=== PATIENT | female | born 1985 ===

== ENCOUNTER 2018-02-09 09:20 | Emergency (ER) | payer OTHER ==
[2018-02-09 09:24] VITALS: O2SAT 99; BMI 27.6
--- NOTE | 2018-02-09 10:26 | ED PDOC ---
HPI: General Adult Chief Complaint (Provider): generalized body aches History Per: Patient History/Exam Limitations: no limitations Onset/Duration Of Symptoms: Days (7) Current Symptoms Are (Timing): Constant Pain Scale Rating Of: 8 <Ortega Vital - Last Filed: 02/09/18 14:25> <Ino Caal III - Last Filed: 02/11/18 12:39> Chief Complaint (Nursing): Flu-like Symptoms Additional Complaint(s): 32 yo ,f, no significant PMhx presents to ED c/o generalized body aches for the last 7 days over b/l legs, b/l arms and back of the neck, partially alleviated, not related with any new exertion activity, associated with body warmth sensation but not fever. she denies fever, cough, runny nose, nasal congestion, chest pain , SOB, joint swelling, morning hand stiffness, skin rash, camping, insect bite, recent travel, leg swelling, hx/o family with autoimmune disease. Patient reports that she was recently seen by PMD, had lab workup and has been treated with diclofenac that only took 2 tab with partially alleviation. patient also taking minocycline for acne. LMP: 02/03/18. no using OCP PMD: Ammon Pedersen (Ortega Vital) Supervising Attending Note <Ortega Vital - Last Filed: 02/09/18 14:25> - Attestation: I have personally seen and examined this patient.: Yes I have fully participated in the care of the patient.: Yes I have reviewed all pertinent clinical information, including history, physical exam and plan: Yes <Ino Caal III - Last Filed: 02/11/18 12:39> - Notes: Notes:: I saw patient and agree w resident findings. 32yo female w malaise, fatigue, body aches ongoing >7d. Initial labs reviewed, Requires outpatient workup. (Ino Caal III) Past Medical History Reviewed: Historical Data, Nursing Documentation, Vital Signs - Medical History PMH: No Chronic Diseases - Surgical History Surgical History: No Surg Hx - Family History Family History: States: Diabetes (father), Hypertension (mother) - Social History Current smoker - smoking cessation education provided: No Alcohol: Occasional Drugs: Denies <Ortega Vital - Last Filed: 02/09/18 14:25> <Ino Caal III - Last Filed: 02/11/18 12:39> Vital Signs: Last Vital Signs Temp 98.0 F 02/09/18 15:04 Pulse 77 02/09/18 15:04 Resp 17 02/09/18 15:04 BP 128/78 02/09/18 15:04 Pulse Ox 99 02/09/18 15:04 - Home Medications Home Medications: Ambulatory Orders Medication Instructions Recorded Ibuprofen [Motrin Tab] 600 mg PO Q6 PRN #15 tab 02/09/18 - Allergies Allergies/Adverse Reactions: Allergies Allergy/AdvReac Type Severity Reaction Status Date / Time No Known Allergies Allergy Verified 02/09/18 09:51 Review of Systems ROS Statement: Except As Marked, All Systems Reviewed And Found Negative Musculoskeletal: Positive for: Neck Pain (posterior), Arm Pain (b/l), Leg Pain ( b/l) <Ortega Vital - Last Filed: 02/09/18 14:25> Physical Exam - Reviewed Vital Signs Reviewed: Yes - Physical Exam Appears: Positive for: Well, No Acute Distress Head Exam: Positive for: ATRAUMATIC, NORMOCEPHALIC Skin: Positive for: Normal Color Eye Exam: Positive for: Normal appearance ENT: Positive for: Normal ENT Inspection Neck: Positive for: Normal, Supple Cardiovascular/Chest: Positive for: Regular Rate, Rhythm. Negative for: Murmur Respiratory: Positive for: Normal Breath Sounds. Negative for: Crackles, Rales , Rhonchi, Wheezing Gastrointestinal/Abdominal: Positive for: Soft. Negative for: Tenderness, Distended, Guarding, Rebound Back: Positive for: Normal Inspection. Negative for: L CVA Tenderness, R CVA Tenderness Extremity: Positive for: Tenderness (TD over anterior side b/l thigh), Other ( TD to touch bones arms and thigh. no muscle TD). Negative for: Calf Tenderness (no rachel sign), Swelling Neurologic/Psych: Positive for: Alert, Oriented. Negative for: Motor/Sensory Deficits <Ortega Vital - Last Filed: 02/09/18 14:25> - Laboratory Results Result Diagrams: 02/09/18 10:33 02/09/18 10:33 - ECG O2 Sat by Pulse Oximetry: 99 <Ortega Vital - Last Filed: 02/09/18 14:25> - Laboratory Results Result Diagrams: 02/09/18 10:33 02/09/18 10:33 <Ino Caal III - Last Filed: 02/11/18 12:39> Medical Decision Making <Ortega Vital - Last Filed: 02/09/18 14:25> <Ino Caal III - Last Filed: 02/11/18 12:39> Medical Decision Makin:30 Impression Generalized body pain unspecified Differential Fibromyalgia, Rhabdomyolisis, Myalgia for overuse, OA, AR, polymyalgia rheumatica, Lyme disease,Influenza, UTI Plan CBC, CMP, CK, Lyme serology, TSH Urine dip, urine preg EKG IV fluids NS 1 L, Toradol 15 mg IV 12:11 Patient reports feeling better after iv fluids and Toradol. reports that pain has impoved Labs reviewed CBC normal. CK: 250 sed rate:29 TSH normal 0.7\ Patient cleared to be discharge. will have follow up with [facility] Dr Ammon Pedersen Pending Lyme disease test. (Ortega Vital) Disposition - Patient ED Disposition Is Patient to be Admitted: No - Disposition Disposition Time: 14:25 <Ortega Vital - Last Filed: 02/09/18 14:25> <Ino Caal III - Last Filed: 02/11/18 12:39> - Clinical Impression Clinical Impression: Myalgia - Disposition Referrals: [facility] [Outside] Condition: STABLE Additional Instructions: Followup with clinic for further testing and Lyme results (available in 4-7 days ) Return to ER for any new or worsening symptoms. Drink plenty of fluids. Stop minocycline for now. Trial of motrin provided. DO NOT TAKE WITH DICLENOFAC- TAKE ONE OR THE OTHER FOR PAIN. Seguimiento con la clnica para ms pruebas y resultados de Lyme (disponible en 4-7 portillo) Regrese a la siddhartha de emergencias por cualquier sntoma nuevo o que empeore. Beber mucho lquido. Detener la minociclina por ahora. Prueba de motrin proporcionada. NO TOME CON DICLENOFAC-TOME JOSIANE O EL OTRO PARA EL DOLOR. Prescriptions: Ibuprofen [Motrin Tab] 600 mg PO Q6 PRN #15 tab PRN Reason: Pain, Moderate (4-7) Instructions: Muscle and Bone Pain (DC) Forms: [facility] ([place] Citizen) Print Language: SINHALA
[2018-02-09 10:42] LABS: BASO % 0.4 % (0.0-2.0); EOS % 0.2 % (0.0-4.0); HEMOGLOBIN 14.3 g/dL (12.0-16.0); LYMPH # 1.8 K/uL (1.0-4.3); LYMPH % 24.2 % (20.0-40.0); MEAN CELL VOLUME 88.1 fl (81.0-99.0); MEAN CORPUSCULAR HEMOGLOBIN 31.3 pg (27.0-31.0); MEAN CORPUSCULAR HGB CONC 35.6 g/dL (33.0-37.0); MEAN PLATELET VOLUME 8.4 fl (7.2-11.7); MONO # 0.3 K/uL (0.0-0.8); MONO % 4.5 % (0.0-10.0); NEUT # 5.2 K/uL (1.8-7.0); NEUT % 70.7 % (50.0-75.0); NRBC % 0.1 % (0.0-0.0); RBC 4.56 Mil/uL (3.80-5.20); RED CELL DISTRIBUTION WIDTH 12.5 % (11.5-14.5); WHITE BLOOD COUNT 7.4 K/uL (4.8-10.8)
[2018-02-09 11:00] LABS: ALB/GLOB RATIO 1.2 (1.0-2.1); ALBUMIN 4.4 g/dL (3.5-5.0); ALT/SGPT 27 U/L (9-52); AST/SGOT 36 U/L (14-36); BLOOD UREA NITROGEN 14 mg/dl (7-17); CALCIUM 9.3 mg/dL (8.4-10.2); GFR AFRICAN-AMERICAN > 60; GFR NON-AFRICAN AMERICAN > 60
[2018-02-09] MEDS: Sodium Chloride 0.9% 1,000 ML IV SCH ×2 (11:04→12:24)
[2018-02-09 15:05] VITALS: BP 128/78; PULSE 77; RESP 17; TEMP 98
--- NOTE | 2018-02-09 15:11 | CARD ---
APPROVED REPORT EKG Measurement Heart [id number] <Conclusion> Normal sinus rhythm Normal ECG
== END 2018-02-09 15:06 | disposition home or self-care (01) ==
LOC: H.ER 09:20
DX: M79.1 Myalgia (principal)
CPT/HCPCS: 80053; 82550; 84443; 85025; 85651; 86618; 93005; 96374; 99284; J1885; J7040